=== PATIENT | female | born 1985 | race Caucasian/White ===

== ENCOUNTER 2025-01-16 23:12 | Emergency (ER) | payer BC, SELFPAY ==
--- NOTE | ~2025-01-16 | CT_ITS ---
EXAMINATION: CT abdomen pelvis w con DATE: 01/17/2025 01:06 INDICATION: Suprapubic pain TECHNIQUE: Computed tomography (CT) of the abdomen and pelvis was performed with 100 mL Omnipaque-350 intravenous contrast. Automated exposure control and iterative reconstruction technique were employe d. The dose-length product was 1430.47 mGy-cm. COMPARISON: None FINDINGS: Lung bases are clear. Heart size normal. No pericardial or pleural effusion. Focal hepatic steatosis at the ligamentum teres. Gallbladder, spleen, pancreas, bilateral adrenal glands are normal. 2 mm non obstructing stone in a lower pole calyx of the right kidney. There are a couple regions of cortical s carring the left kidney with cluster of 3 have 4 stones measuring up to 3 mm in a calyx at the majori ty regions of scarring at the lower pole of the left kidney. No ureteral stones or hydronephrosis. No bowel obstruction. Bladder is normal. 3 cm diameter lesion likely within the endocervical canal whic h is contiguous with the endometrial complex. There appears to be a dependent gradient of increasing density within the lesion suggesting possible accumulation of blood but a solid neoplastic etiology c annot be excluded. Bilateral adnexa are unremarkable. No free intraperitoneal gas or fluid. No pathol ogically enlarged abdominal or pelvic lymphadenopathy. Mild scattered degenerative skeletal changes. IMPRESSION: 1. 3 cm lesion at the endocervical canal with gradient of increasing dependent density suggesting pos sible accumulation of blood although neoplasm cannot be excluded. Correlate with pelvic ultrasound. 2. Bilateral nonobstructing nephrolithiasis. Reviewed, dictated and finalized at location A. IMPRESSION: 1. 3 cm lesion at the endocervical canal with gradient of increasing dependent density suggesting possible accumulation of blood although neoplasm cannot be e xcluded. Correlate with pelvic ultrasound. 2. Bilateral nonobstructing nephrolithiasis.
--- NOTE | ~2025-01-16 | US_ITS ---
EXAMINATION: US pelvic complete w TV DATE: 01/17/2025 03:05 INDICATION: Suprapubic pain TECHNIQUE: Multiple transabdominal and endovaginal sonographic images of the pelvis were obtained. COMPARISON: Pelvic ultrasound dated 10/24/[address] dated FINDINGS: The uterus measures 7.0 x 3.9 x 4.9 cm. The endometrial complex measures 8 mm in thickness. There is a 2.6 x 1.9 x 1.0 cm hypoechoic region centered at the cervix. There is vascular flow peripheral to the lesion but no definitive internal vascular flow which along with the appearance on prior CT favor s clot over neoplasm. The right ovary measures 2.4 x 2.4 x 1.4 cm. The left ovary measures 2.4 x 2.2 x 1.0 cm. Vascular flow on color Doppler and a few small anechoic follicles at both ovaries. There is minimal amount of likely physiologic free fluid in the pelvis. IMPRESSION: 1. 2.6 x 1.9 x 1.0 cm hypoechoic region consistent within the cervix without evident internal vascula r flow on color Doppler and with gradient of density on prior CT most suggestive of blood/clot within the endocervical canal. Consider follow-up pelvic ultrasound in a few weeks to confirm resolution. Reviewed, dictated and finalized at location A. IMPRESSION: 1. 2.6 x 1.9 x 1.0 cm hypoechoic region consistent within the cervix without ev ident internal vascular flow on color Doppler and with gradient of density on p rior CT most suggestive of blood/clot within the endocervical canal. Consider f ollow-up pelvic ultrasound in a few weeks to confirm resolution.
--- OUTSIDE RECORDS SUMMARY | 2025-01-16 23:14 | XMS_ITS | Continuity of Care Document ---
Author Organization [facility] [employer] Address [address] [place] [address] Phone Care Team Providers Care Channel Director Name Role Phone Radha Balbuena MD Unavailable Unavailable Procedures Procedure Date SUBSEQUENT HOSPITAL CARE SUBSEQUENT CARE URINALYSIS NONAUTO W/O SCOPE INITIAL CARE VISIT URINALYSIS NONAUTO W/O SCOPE ROUTINE VENIPUNCTURE HFS Tracking Only F Advance Directives Directive Yes / No Effective Date File Name No Information Encounters Encounter Description Practice Location Reason(s) For Visit Diagnoses Date Provider Providers Copied on Encounter SUBSEQUENT HOSPITAL CARE [facility] [employer] [facility], [address], [place], [id number], [place] tel:[phone] [facility] No Information Sree Garcia. [address] [place], [address], [place]. tel:[phone] Referring Provider: Radha Edwards, [address] [place], [address]. tel:[phone] [facility] [employer] [facility], [address], [place], [place], [id number], [place] tel:[phone] [facility] No Information Sree Garcia. [address] [place], [address], [place]. tel:[phone] Referring Provider: Radha Edwards, [address] [place], [address]. tel:[phone] [facility] [employer] [facility], [address], [place], [place], [id number], [place] tel:[phone] [facility] No Information Sree Garcia. [address] [place], [address], [place]. [phone] Referring Provider: Radha Edwards, [address] [place], [address]. tel:[phone] Family History Family Member Type Diagnosis Age At Onset No Information Payers Payer name Insurance type Covered green party ID Authoriza tidusty(s) [place] Medicaid MC [id number] Social History Type Description Quantity Date Captured Comments Sex Female Smoking Status No Information Chief Complaint And Reason For Visit No Information Reason For Referral Reason For Referral No Information History Of Present Illness Encounter Date Complaint History Of Prese nt Illness No Information Functional Status Date Functional Assessmen t No Information Instructions Date Instruction Additional Infor mation No Information Assessments Type Assessment Date No Information Patient Care Teams Name Effective Dates (start - stop) Status Members No Information
--- OUTSIDE RECORDS SUMMARY | 2025-01-16 23:14 | XMS_ITS | Clinical Summary ---
Author Organization [facility] Address [address] [place] [address] Care Team Providers Care Job Captain Name Role Phone Angelito Lopez MD Primary Care Provider [phone] Source Comments [facility],non-owned Affiliates and Associated Physician Practices is amultiple site organization consisting of ambulatory clinics and hospital sitesin [place], [place], [place] and [place]. This disclosure is being madepursuant to the Care Everywhere program and may not contain all information available regarding this patient. Last updated 18.[facility] [employer] Allergies No known active allergies Medications * Be aware that medications may not be up to date on this document. Alwaysverify current medications with the patient. phentermine (ADIPEX-P) 37.5 MG capsule Take 37.5 mg by mouth daily before breakfast. Active hydrocodone-oluis taminophen (NORCO) 5-325 MG tablet Take 1 Tab by mouth every 4 hours as needed for Pain. 20 Tab 0 07/26/2014 Active ibuprofen (MOTRIN) 600 MG tablet Take 1 Tab by mouth every 6 hours as needed for Pain. 20 Tab 0 07/26/2014 Active tamsulosin CR 24hr (FLOMAX) 0.4 MG capsule Take 1 Cap by mouth once daily. Take 30 minutes after a meal at the same time each day. 30 Cap 0 07/26/2014 Active ondansetron, disintegrating, (Zofran ODT) 8 MG tabletIndicatio ns:Nausea and Vomiting Take 1 (one) tablet by mouth every 8 hours as needed for Nausea/Vomiti ng Allow tablet to dissolve on the tongue Reasons: Nausea and Vomiting 10 tablet 12/24/2022 Active Social History Tobacco Use Types Packs/Day Years Used Date Smoking Tobacco: Every Day Cigarettes Last attempted to quit: 07/26/2010 Smokeless Tobacco: Never Tobacco Cessation:Ready to Q uit: No; Counseling Given: Yes Alcohol Use Standard Drinks/Week Comments No 0 (1 standard drink = 0.6 oz pur e alcohol) PHQ-2 Answer Date Recorded PHQ2 TOTAL SCORE 1 12/24/2022 Comments No Sex and Gender Information Value Date Recorded Sex Assigned at Not on file Legal Sex Female 6:29 AM PATROL SUPERVISOR Gender Identity Not on file Sexual Orientation Not on file Last Filed Vital Signs Vital Sign Reading Time Taken Comments Blood Pressure 141/96 07/26/2014 2:35 PM PATROL SUPERVISOR Pulse 76 07/26/2014 12:45 PM PATROL SUPERVISOR Temperature 36.3 C (97.4 F) 07/26/2014 10:25 AM PATROL SUPERVISOR Respiratory Rate 16 07/26/2014 2:35 PM PATROL SUPERVISOR Oxygen Saturation 100% 07/26/2014 2:35 PM PATROL SUPERVISOR Inhaled Oxygen Concentration - - Weight 108.9 kg (240 lb) 07/26/2014 10:25 AM PATROL SUPERVISOR Height 157.5 cm (5' 2.01) 07/26/2014 10:[address] Body Mass Index 43.89 07/26/2014 10:25 AM PATROL SUPERVISOR Plan of Treatment Health Maintenance Due Date Last Done Comments PAP SMEAR 1987 HIV SCREENING 2002 HEPATITIS C SCREENING 08/26/2005 DTAP/TDAP/TD VACCINES (1 - Tdap) 2006 HEPATITIS B VACCINE (1 of 3 - 19+ 3-dose series) 2006 PNEUMOCOCCAL VACCINE (1 of 2 - PCV) 2006 COVID-19 VACCINE ( - 2023-2 5 season) 2024 DEPRESSION SCREENING 08/13/2024 12/24/2022 INFLUENZA VACCINE (Season Ended) 2025 ZOSTER VACCINE (1 of 2) 2037 HIB VACCINE Aged Out No longer eligi ble based on patient's age to complete this topic HPV VACCINE Aged Out No longer eligi ble based on patient's age to complete this topic MENINGOCOCCAL (Group B) VACC INE SHARED DECISION-MAKING Aged Out No longer eligibl e based on patient's age to complete this topic MENINGOCOCCAL GROUPS A/C/Y/W VACCINE Aged Out No longer eligible b ased on patient's age to complete this topic Insurance MEDICAID [facility] MEDICAID PCP - General Internal Medicine 07/26/14
--- OUTSIDE RECORDS SUMMARY | 2025-01-16 23:14 | XMS_ITS | Continuity of Care Document ---
Author Organization [facility] Address [address] [place] [address] Phone Care Team Providers Care Director Toxicology Name Role Phone [employer] Unavailable Unavailable Procedures Procedure Date KO, Elastic Or Other Elastic Type Materi al W/condy Advance Directives Directive Yes / No Effective Date File Name No Information Encounters Encounter Description Practice Location Reason(s) For Visit Diagnoses Date Provider Providers Copied on Encounter [facility], [address] [facility], [place], [address], tel:[phone] [facility] No Information [address] [employer] [place] [address], [address], [place]. tel:[phone] Referring Provider: Deion Hanson, [address] [place] [address], [address] . tel:[phone] Family History Family Member Type Diagnosis Age At Onset No Information Payers Payer name Insurance type Covered constitution party ID Authoriza tion(s) IDPA [id number] Social History Type Description Quantity Date Captured [...]
--- OUTSIDE RECORDS SUMMARY | 2025-01-16 23:14 | XMS_ITS | Continuity of Care Document ---
Author Organization [facility] Address [address] [place] [address] Phone Care Team Providers Care Malt Liquors Sales Supervisor Name Role Phone Deion Teague MD Unavailable Unavailable Medications Medication Instructions Dosage Effective Dates (start - stop) Status Comments EC-Naprosyn 500 mg Tab Take 1 tablet by mouth twice daily - Active Procedures Procedure Date Office/outpatient visit,[facility] 2008 X-ray exam of knee, 3 views Advance Directives Directive Yes / No Effective Date File Name No Information Encounters Encounter Description Practice Location Reason(s) For Visit Diagnoses Date Provider Providers Copied on Encounter Office/outpat ient visit,[facility], [facility], [address] [place] [address], [id number], tel:[phone] [facility] No Information [address] [facility]. [address] [place] [address], [id number] , . [phone] Referring Provider: [place], [address]. tel:[phone] [facility], [address] [place] [address], [id number], tel:[phone] [facility] No Information [address]. [address] [place], [place], [id number] , . tel:[phone] Referring Provider: [place], [address]. tel:[phone] Family History Family Member Type Diagnosis Age At Onset No Information Payers Payer name Insurance type Covered republican ID Brittaney wagner(s) IDPA [id number] Social History Type Description Quantity Date Captured [...]
[2025-01-16 23:32] VITALS: BP 139/79; PULSE 79; RESP 20; TEMP 36.6; O2SAT 99
[2025-01-16 23:38] LABS: BEDSIDEPREGUCG Negative (Negative)
[2025-01-16 23:39] LABS: Basophils Absolute Auto 0.1 K/mm3 (0.0-0.1); Basophils Percent Auto 0.4 % (0.2-1.2); Eosinophils Absolute Auto 0.1 K/mm3 (0-0.3); Eosinophils Percent Auto 0.7 % (0-4.4); Hematocrit 39.8 % (37.0-47.0); Hemoglobin 12.8 g/dL (12.0-15.0); Immature Granulocyte Absolute 0.07 K/mm3 (0.00-0.031); Immature Granulocyte Percent A 0.5 % (0-0.5); Lymphocytes Absolute Auto 1.39 K/mm3 (0.9-3.2); Lymphocytes Percent Auto 9.4 % (18.3-44.2); Mean Corpuscular HGB Conc 32.2 g/dl (32-36); Mean Corpuscular Hemoglobin 26.4 pg (26-34); Mean Corpuscular Volume 82.1 fl (80-100); Monocytes Absolute Auto 0.6 K/mm3 (0.1-0.6); Neutrophils Absolute Auto 12.5 K/mm3 (1.3-6.7); Platelet Count Result 315 k/mm3 (150-375); Red Blood Count 4.85 M/mm3 (4.2-5.4); Red Cell Distribution Width 13.4 % (11.5-14.5); White Blood Count 14.7 K/mm3 (4.5-10.0)
[2025-01-16 23:48] LABS: Alanine Aminotransferase 23 U/L (6-35); Albumin Level 4.4 g/dL (3.5-5.1); Alkaline Phosphatase 115 U/L (38-126); Anion Gap 8 mmol/L (4-12); Aspartate Amino Transferase 28 U/L (14-36); Bilirubin,Total 0.4 mg/dL (0.2-1.3); Blood Urea Nitrogen 8 mg/dL (7-17); Calcium 9.5 mg/dL (8.4-10.2); Carbon Dioxide 23 mmol/L (22-30); Chloride 107 mmol/L (98-107); Estimated CRCL calculation 116 ml/min; Estimated Glomerular Filt Rate > 60; Glucose 126 mg/dL (65-110); Lipase 58 U/L (23-300); Potassium 3.9 mmol/L (3.4-5.0); Sodium 138 mmol/L (137-145)
[2025-01-16 23:51] LABS: Add Urine Microscopic? YES; Appearance Urine Clear (Clear); Bacteria Urine Rare /hpf; Bilirubin Urine Negative (Negative); Blood Urine Trace (Negative); Color Urine Yellow (Yellow); Glucose Urine UA Negative (Negative); Ketones Urine 1+ mg/dL (Negative); Leukocyte Esterase Ur Negative LEU/UL (Negative); Need Manual Microscopic Reviewed; Nitrate Urine Negative (Negative); Non Pathogenic Casts 0-2; Protein Urine Negative (Negative); RBC Urine 0-2 /hpf (0-2); Specific Grav Ur 1.025 (1.001-1.035); Squamous Epithelial Cell Urine Few /hpf (Few); Urobilinogen Urine 0.2 mg/dL (<2.0); pH Urine 5.5 (5.0-9.0)
--- OUTSIDE RECORDS SUMMARY | 2025-01-17 00:42 | XMS_ITS | Clinical Summary ---
Author Organization [facility] Address [address] [place] [address] Care Team Providers Care Adult Literacy Instructor Name Role Phone Angelito Lopez MD Primary Care Provider [phone] Source Comments [facility],non-owned Affiliates and Associated Physician Practices is amultiple site organization consisting of ambulatory clinics and hospital sitesin [place], [place], [place] and [place]. This disclosure is being madepursuant to the Care Everywhere program and may not contain all information available regarding this patient. Last updated 18.[employer] Allergies No known active allergies Medications * Be aware that medications may not be up to date on this document. Alwaysverify current medications with the patient. phentermine (ADIPEX-P) 37.5 MG capsule Take 37.5 mg by mouth daily before breakfast. Active hydrocodone-louis taminophen (NORCO) 5-325 MG tablet Take 1 [...] on file Legal Sex Female 6:29 AM DIRECTOR OF NEUROLOGY Gender Identity Not on file Sexual Orientation Not on file Last Filed Vital Signs Vital Sign Reading Time Taken Comments Blood Pressure 141/96 07/26/2014 2:35 PM DIRECTOR OF NEUROLOGY Pulse 76 07/26/2014 12:45 PM DIRECTOR OF NEUROLOGY Temperature 36.3 C (97.4 F) 07/26/2014 10:25 AM DIRECTOR OF NEUROLOGY Respiratory Rate 16 07/26/2014 2:35 PM DIRECTOR OF NEUROLOGY Oxygen Saturation 100% 07/26/2014 2:35 PM DIRECTOR OF NEUROLOGY Inhaled Oxygen Concentration - - Weight 108.9 kg (240 lb) 07/26/2014 10:25 AM DIRECTOR OF NEUROLOGY Height 157.5 cm (5' 2.01) 07/26/2014 10:[address] Body Mass Index 43.89 07/26/2014 10:25 AM DIRECTOR OF NEUROLOGY Plan of Treatment Health Maintenance Due Date [...] age to complete this topic Insurance MEDICAID [facility] MEDICAID * Guarantor: E-SCREEN,SOIL Account Type Relation to Patient Date of Phone Billing Address Company Employer [employer] [address] [facility] Teams Adult Literacy Instructor Relationship Specialty Start Date End Date Angelito Lopez MD [address] [place] [address] PCP - General Internal Medicine 07/26/14
--- OUTSIDE RECORDS SUMMARY | 2025-01-17 00:42 | XMS_ITS | Continuity of Care Document ---
Author Organization [facility] Address [address] [place] [address] Phone Care Team Providers Care Cut In Worker Name Role Phone Deion Teague MD Unavailable Unavailable Medications Medication Instructions Dosage Effective Dates (start - stop) Status Comments EC-Naprosyn 500 mg Tab Take 1 tablet by mouth twice daily - Active Procedures Procedure Date Office/outpatient visit,[facility] 2008 X-ray exam of knee, 3 views Advance Directives Directive Yes / No Effective Date File Name No Information Encounters Encounter Description Practice Location Reason(s) For Visit Diagnoses Date Provider Providers Copied on Encounter Office/outpat ient visit,[facility], [place], [address] [place] [address], [id number], tel:[phone] [facility] No Information 9 [address] Albarran. [address] [place] [address], [id number] , . [phone] Referring Provider: [place], [address]. tel:[phone] [facility], [address] [place] [address], [id number], tel:[phone] [place] [facility] No Information 9 Ho Albarran. [address] [place], [place], [id number] , . tel:[phone] Referring Provider: [place], [address]. tel:[phone] Family History Family Member Type Diagnosis Age At Onset No Information Payers Payer name Insurance type Covered alliance party ID Brittaney wagner(s) IDPA [id number] Social History Type Description Quantity Date Captured [...]
--- OUTSIDE RECORDS SUMMARY | 2025-01-17 00:42 | XMS_ITS | Continuity of Care Document ---
Author Organization [facility] Address [address] [place] [address] Phone Care Team Providers Care Optical Fabricator Name Role Phone Emair Unavailable Unavailable Procedures Procedure Date KO, Elastic Or Other Elastic Type Materi al W/condy Advance Directives Directive Yes / No Effective Date File Name No Information Encounters Encounter Description Practice Location Reason(s) For Visit Diagnoses Date Provider Providers Copied on Encounter [facility], [address] [facility], [place], [address], tel:[phone] [facility] No Information [address] [facility] [place] [address], [address], [place]. tel:[phone] Referring Provider: Deion Hanson, [address] [place] [address], [address] . tel:[phone] Family History Family Member Type Diagnosis Age At Onset No Information Payers Payer name Insurance type Covered libertarian ID Authoriza tion(s) IDPA [id number] Social History Type Description Quantity Date Captured [...]
--- OUTSIDE RECORDS SUMMARY | 2025-01-17 00:42 | XMS_ITS | Clinical Summary ---
Author Organization [facility] Address [address] [address] Phone Care Team Providers Care Solar Sales Ambassador Name Role Phone Brian Son MD Primary Care Provider [phone] Allergies No known active allergies Social History Tobacco Use Types Packs/Day Years Used Date Smoking Tobacco: Every Day Cigarettes Tobacco Cessation:Ready to Q uit: Not Asked; Counseling Given: Not Answered Alcohol Use Standard Drinks/Week Comments Never 0 (1 standard drink = 0.6 oz pur e alcohol) Comments Unknown Sex and Gender Information Value Date Recorded Sex Assigned at Not on file Legal Sex Female 10:06 AM CDT Gender Identity Not on file Sexual Orientation Not on file Last Filed Vital Signs Vital Sign Reading Time Taken Comments Blood Pressure 125/78 08/21/2023 10:15 AM DEPARTMENT TRAFFIC FREIGHT ROUTER Pulse 83 08/21/2023 10:15 AM DEPARTMENT TRAFFIC FREIGHT ROUTER Temperature 36.5 C (97.7 F) 08/21/2023 8:49 AM DEPARTMENT TRAFFIC FREIGHT ROUTER Respiratory Rate 16 08/21/2023 9:15 AM DEPARTMENT TRAFFIC FREIGHT ROUTER Oxygen Saturation 100% 08/21/2023 10:15 AM DEPARTMENT TRAFFIC FREIGHT ROUTER Inhaled Oxygen Concentration - - Weight 105 kg (231 lb 7.7 oz) 08/21/2023 8:49 AM DEPARTMENT TRAFFIC FREIGHT ROUTER Height 157.5 cm (5' 2) 08/21/2023 8:49 AM DEPARTMENT TRAFFIC FREIGHT ROUTER Body Mass Index 42.34 08/21/2023 8:49 AM DEPARTMENT TRAFFIC FREIGHT ROUTER Plan of Treatment Health Maintenance Due Date Last Done Comments Hepatitis C Virus (HCV) Screening 1987 TdaP Immunization 1987 Human Papillomavirus (HPV) Immunization (1 - 3-dose series) 2002 Hepatitis B Immunization (1 of 3 - 19+ 3-dose series) 2006 Pneumococcal Immunization Co mbined (1 of 2 - PCV) 2006 Pap Smear 2008 Cervical Cancer Screening (CCS) 2017 HPV/Cotest 2017 SARS-COV-2 Immunization (1 - 2023- season) 2024 Influenza Immunization (Seas on Ended) 2025 Respiratory Syncytial Virus (RSV) Immunization (Adult) (1 - 1-dose 75+ series) 2062 Meningococcal Immunization (ACWY) Aged Out No longer eligible based on patient's age to complete this topic Rotavirus Immunization Aged Out No lo nger eligible based on patient's age to complete this topic Insurance MEDICAID [employer] [place] [place] Care Teams Solar Sales Ambassador Relationship Specialty Start Date End Date Brian Son MD PCP - General Internal Medicine 08/21/23
--- OUTSIDE RECORDS SUMMARY | 2025-01-17 00:42 | XMS_ITS | Continuity of Care Document ---
Author Organization [facility] Address [address] [place] [address] Phone Care Team Providers Care Deli Associate Name Role Phone Radha Balbuena MD Unavailable Unavailable Procedures Procedure Date SUBSEQUENT HOSPITAL CARE SUBSEQUENT CARE URINALYSIS NONAUTO W/O SCOPE INITIAL CARE VISIT URINALYSIS NONAUTO W/O SCOPE ROUTINE VENIPUNCTURE HFS Tracking Only F Advance Directives Directive Yes / No Effective Date File Name No Information Encounters Encounter Description Practice Location Reason(s) For Visit Diagnoses Date Provider Providers Copied on Encounter SUBSEQUENT HOSPITAL CARE [facility] [employer] [facility], [address], [place], [id number], [place] tel:[phone] [facility] No Information Sree Garcia. [address] [place], [address], [place]. tel:[phone] Referring Provider: Radha Edwards, [address] [place], [address]. tel:[phone] [facility] [employer] [facility], [address], [place], [place], [id number], [place] tel:[phone] [facility] No Information Sree Garcia. [address] [place], [address], [place]. tel:[phone] Referring Provider: Radha Edwards, [address] [place], [address]. tel:[phone] [facility] [employer], [address], [place], [place], [id number], [place] tel:[phone] [facility] No Information Sree Garcia. [address] [place], [address], [place]. [phone] Referring Provider: Radha Edwards, [address] [place], [address]. tel:[phone] Family History Family Member Type Diagnosis Age At Onset No Information Payers Payer name Insurance type Covered green party ID Authoriza tidusty(s) [place] Medicaid MC [id number] Social History Type Description Quantity Date Captured [...]
--- NOTE | 2025-01-17 00:43 | ED_ITS ---
HPI - Abdominal Pain General Chief Complaint: Abdominal Pain <GIDEON Wells Last Filed: 01/17/25 02:44> Stated Complaint: suprapubic pain/abd pain <GIDEON Wells Last Filed: 01/17/25 02:44> Time Seen by Provider: 01/17/25 00:17 <GIDEON Wells Last Filed: 01/17/25 02:44> History of Present Illness HPI narrative: 39-year-old female with reported history of tubal ligation and appendectomy presents emergency department for suprapubic abdominal pain that started yesterday. Patient states since she had a tubal ligation about 13 years ago she develops severe suprapubic pain every time she gets her menstrual cycle. She states she typically has the pain, then the pain subsides shortly after when she begins having vaginal bleeding. She states yesterday she began having very sharp pains in her suprapubic region with light vaginal spotting. She is currently on schedule for her period. States the spotting has resolved with the pain is persistent which is abnormal. She is not currently having any vaginal bleeding. She describes the pain as sharp and stabbing. She denies dysuria, hematuria, urinary frequency urgency, fever, nausea or vomiting, diarrhea, vaginal discharge, concern for STDs. She has not taken anything for pain. < Gloria Villalba PA-C - Last Filed: 01/17/25 02:44> Related Data Allergies/Adverse Reactions: Allergies Allergy/AdvReac Type Severity Reaction Status Date / Time No Known Allergies Allergy Unknown Verified 10/11/11 09:22 <Gloria Villalba PA-C - Last Filed: 01/17/25 02:44> Review of Systems 2 Review of Systems: All systems reviewed & are unremarkable except as noted in HPI and below <GIDEON Wells Last Filed: 01/17/25 02:44> Exam 2 Narrative: GENERAL: Uncomfortable writhing in exam bed HEAD: Normocephalic, atraumatic. EYES: PERRLA and EOMI. ENT: Nares clear, no rhinorrhea or epistaxis. Mucous membranes moist. Dental caries throughout NECK: Supple. CHEST: Clear to auscultation. No respiratory distress. HEART: Regular rate and rhythm. No murmur heard. Normal peripheral pulses. ABDOMEN: Normoactive bowel sounds. Abdomen soft with tenderness to the suprapubic region. No rebound or rigidity. No CVA tenderness. EXTREMITIES: Normal range of motion. No edema. SKIN: Warm, dry, no rash. NEURO: No focal deficits. Alert and oriented x3 <Gloria Villalba PA-C - Last Filed: 01/17/25 02:44> Course Course Emergency Course: Patient care signed out by previous provider pending ultrasonography of the abdomen and pelvis. Patient had a CT scan earlier for abdominal pain and abdominal cramping similar to her periods. Patient had a cystic structure at the cervix with recommendations to obtain ultrasound. Ultrasound was reviewed and interpreted by radiology with normal uterus, endometrial stripe at 7.8 mm, avascular material within the endocervical canal consistent with hemorrhage, ovaries are unremarkable, no pelvic fluid or adnexal masses. Patient has overall unremarkable imaging and laboratory studies and be safely discharged home at this time given that her pain is controlled and no acute findings. < Martin Hamilton MD - Last Filed: 01/17/25 06:59> ENGINEERING LAB TECHNICIAN/PA Physician Supervision This visit was performed by both a physician and an APC. I performed all aspects of the MDM as documented. <Martin Hamilton MD - Last Filed: 01/17/25 06:59> Vital Signs Vital signs: Vital Signs Temperature 36.6 C 01/16/25 23:32 Pulse Rate 79 01/16/25 23:32 Respiratory Rate 20 01/16/25 23:32 Blood Pressure 139/79 01/16/25 23:32 Pulse Oximetry 99 01/16/25 23:32 Oxygen Delivery Room Air 01/16/25 23:32 Temperature 36.6 C 01/16/25 23:32 Pulse Rate 67 01/17/25 00:50 Respiratory Rate 19 01/17/25 00:50 Blood Pressure 131/107 H 01/17/25 00:50 Pulse Oximetry 100 01/17/25 00:50 Oxygen Delivery Room Air 01/16/25 23:32 <Gloria Villalba PA-C - Last Filed: 01/17/25 02:44> Vital Signs Temperature 36.6 C 01/16/25 23:32 Pulse Rate 79 01/16/25 23:32 Respiratory Rate 20 01/16/25 23:32 Blood Pressure 139/79 01/16/25 23:32 Pulse Oximetry 99 01/16/25 23:32 Oxygen Delivery Room Air 01/16/25 23:32 Temperature 36.6 C 01/16/25 23:32 Pulse Rate 67 01/17/25 00:50 Respiratory Rate 19 01/17/25 00:50 Blood Pressure 131/107 H 01/17/25 00:50 Pulse Oximetry 100 01/17/25 00:50 Oxygen Delivery Room Air 01/16/25 23:32 <Martin Hamilton MD - Last Filed: 01/17/25 06:59> MDM - Abdominal Pain MDM Narrative Medical decision making narrative: 39-year-old female with history of appendectomy and tubal ligation presents to the emergency department for suprapubic abdominal pain that started yesterday with associated vaginal spotting. This is associated with the timing of her menstrual cycle. Vital signs are stable. She is afebrile and nontoxic appearing, however does appear very uncomfortable on exam is writhing in the exam bed. Exam is notable for tenderness to the suprapubic region with no rebound or rigidity. Lab work is remarkable for leukocytosis of 14.7. Chemistries are unremarkable. UA with 11-20 white blood cells, no leuk esterase or nitrites, 1+ ketones, no hematuria. Urine culture is pending. Lipase is within normal limits. is negative. CT abdomen pelvis shows a cystic area in the cervix measuring 3.3 x 2.8 cm with recommendations for pelvic ultrasound. Pt given fluids, Zofran and Toradol with significant improvement. Pending pelvic ultrasound to rule out ovarian torsion and for further evaluation of CT at time of sign-out to Dr. Hamilton. <Gloria Villalba PA-C - Last Filed: 01/17/25 02:44> Lab Data Result diagrams: 01/16/25 23:30 01/16/25 23:30 <Gloria Villalba PA-C - Last Filed: 01/17/25 02:44> Labs: Lab Results 01/16/25 01/16/25 Range/Units 23:30 23:32 WBC 14.7 H (4.5-10.0) K/mm3 RBC 4.85 (4.2-5.4) M/mm3 Hgb 12.8 (12.0-15.0) g/dL Hct 39.8 (37.0-47.0) % MCV 82.1 (80-100) fl MCH 26.4 (26-34) pg MCHC 32.2 (32-36) g/dl RDW 13.4 (11.5-14.5) % Plt Count 315 (150-375) k/mm3 MPV 10.0 (7.4-10.4) fl Immature Gran % (Auto) 0.5 (0-0.5) % Neut % (Auto) 85.0 H (45.5-73.1) % Lymph % (Auto) 9.4 L (18.3-44.2) % [place] % (Auto) 4.0 (2.6-8.5) % Eos % (Auto) 0.7 (0-4.4) % Baso % (Auto) 0.4 (0.2-1.2) % Lymph # (Auto) 1.39 (0.9-3.2) K/mm3 [place] # (Auto) 0.6 (0.1-0.6) K/mm3 Eos # (Auto) 0.1 (0-0.3) K/mm3 Baso # (Auto) 0.1 (0.0-0.1) K/mm3 Abs Immat Gran (auto) 0.07 H (0.00-0.031) K/mm3 Absolute Neuts (auto) 12.5 H (1.3-6.7) K/mm3 Absolute Nucleated RBC 0.000 (0.0-0.012) K/mm3 Nucleated RBC % 0.0 (0.0-0.2) % Sodium 138 (137-145) mmol/L Potassium 3.9 (3.4-5.0) mmol/L Chloride 107 (98-107) mmol/L Carbon Dioxide 23 (22-30) mmol/L Anion Gap 8 (4-12) mmol/L BUN 8 (7-17) mg/dL Creatinine 0.66 L (0.7-1.0) mg/dL Estim Creat Clear Calc 116 ml/min Estimated GFR > 60 (59 - ) Glucose 126 H (65-110) mg/dL Calcium 9.5 (8.4-10.2) mg/dL Total Bilirubin 0.4 (0.2-1.3) mg/dL AST 28 (14-36) U/L ALT 23 (6-35) U/L Alkaline Phosphatase 115 (38-126) U/L Total Protein 8.0 (6.3-8.2) g/dL Albumin 4.4 (3.5-5.1) g/dL Lipase 58 (23-300) U/L Urine Color Yellow (Yellow) Urine Appearance Clear (Clear) Urine pH 5.5 (5.0-9.0) Ur Specific [place] 1.025 (1.001-1.035) Urine Protein Negative (Negative) mg/dL Urine Glucose (UA) Negative (Negative) mg/dL Urine Ketones 1+ H (Negative) mg/dL Ur Blood (Man) Trace (Negative) Urine Nitrate Negative (Negative) Urine Bilirubin Negative (Negative) Urine Urobilinogen 0.2 (<2.0) mg/dL Add Ur Microanalysis Reviewed Leukocyte Esterase Rfl Negative (Negative) CHRISTEL/UL Urine RBC 0-2 (0-2) /hpf Urine WBC 11-20 H (0-3) /hpf Ur Squamous Epith Cells Few (Few) /hpf Urine Bacteria Rare /hpf Urine Casts 0-2 POC Urine HCG, Qual Negative (Negative) <Gloria Villalba PA-C - Last Filed: 01/17/25 02:44> Lab Results 01/16/25 01/16/25 Range/Units 23:30 23:32 WBC 14.7 H (4.5-10.0) K/mm3 RBC 4.85 (4.2-5.4) M/mm3 Hgb 12.8 (12.0-15.0) g/dL Hct 39.8 (37.0-47.0) % MCV 82.1 (80-100) fl MCH 26.4 (26-34) pg MCHC 32.2 (32-36) g/dl RDW 13.4 (11.5-14.5) % Plt Count 315 (150-375) k/mm3 MPV 10.0 (7.4-10.4) fl Immature Gran % (Auto) 0.5 (0-0.5) % Neut % (Auto) 85.0 H (45.5-73.1) % Lymph % (Auto) 9.4 L (18.3-44.2) % [place] % (Auto) 4.0 (2.6-8.5) % Eos % (Auto) 0.7 (0-4.4) % Baso % (Auto) 0.4 (0.2-1.2) % Lymph # (Auto) 1.39 (0.9-3.2) K/mm3 [place] # (Auto) 0.6 (0.1-0.6) K/mm3 Eos # (Auto) 0.1 (0-0.3) K/mm3 Baso # (Auto) 0.1 (0.0-0.1) K/mm3 Abs Immat Gran (auto) 0.07 H (0.00-0.031) K/mm3 Absolute Neuts (auto) 12.5 H (1.3-6.7) K/mm3 Absolute Nucleated RBC 0.000 (0.0-0.012) K/mm3 Nucleated RBC % 0.0 (0.0-0.2) % Sodium 138 (137-145) mmol/L Potassium 3.9 (3.4-5.0) mmol/L Chloride 107 (98-107) mmol/L Carbon Dioxide 23 (22-30) mmol/L Anion Gap 8 (4-12) mmol/L BUN 8 (7-17) mg/dL Creatinine 0.66 L (0.7-1.0) mg/dL Estim Creat Clear Calc 116 ml/min Estimated GFR > 60 (59 - ) Glucose 126 H (65-110) mg/dL Calcium 9.5 (8.4-10.2) mg/dL Total Bilirubin 0.4 (0.2-1.3) mg/dL AST 28 (14-36) U/L ALT 23 (6-35) U/L Alkaline Phosphatase 115 (38-126) U/L Total Protein 8.0 (6.3-8.2) g/dL Albumin 4.4 (3.5-5.1) g/dL Lipase 58 (23-300) U/L Urine Color Yellow (Yellow) Urine Appearance Clear (Clear) Urine pH 5.5 (5.0-9.0) Ur Specific [place] 1.025 (1.001-1.035) Urine Protein Negative (Negative) mg/dL Urine Glucose (UA) Negative (Negative) mg/dL Urine Ketones 1+ H (Negative) mg/dL Ur Blood (Man) Trace (Negative) Urine Nitrate Negative (Negative) Urine Bilirubin Negative (Negative) Urine Urobilinogen 0.2 (<2.0) mg/dL Add Ur Microanalysis Reviewed Leukocyte Esterase Rfl Negative (Negative) CRHISTEL/UL Urine RBC 0-2 (0-2) /hpf Urine WBC 11-20 H (0-3) /hpf Ur Squamous Epith Cells Few (Few) /hpf Urine Bacteria Rare /hpf Urine Casts 0-2 POC Urine HCG, Qual Negative (Negative) <Martin Hamilton MD - Last Filed: 01/17/25 06:59> Discharge Plan Discharge Clinical Impression: Pelvic pain <Gloria Villalba PA-C - Last Filed: 01/17/25 02:44> Patient Disposition: Home <Gloria Villalba PA-C - Last Filed: 01/17/25 02:44> Condition: Stable <Gloria Villalba PA-C - Last Filed: 01/17/25 02:44> Instructions: Antibiotic Form, Pelvic Pain (ED) <Gloria Villalba PA-C - Last Filed: 01/17/25 02:44> Additional Instructions: Your CT scan and ultrasound reports reveal no acute urgent or emergent findings. No free fluid or bleeding in the abdomen or pelvis, no masses, normal uterus, normal ovaries. Laboratory studies are also reassuring. Follow-up with regular doctor or OBGYN regarding her symptoms and pain. Return with any worsening pain, developing fevers not responsive to Tylenol, nausea and vomiting and not able to tolerate oral intake or any other concerns. <Gloria Villalba PA-C - Last Filed: 01/17/25 02:44> Patient Language: Danish <GIDEON Wells Last Filed: 01/17/25 02:44> Follow-up/Referrals: PHYSICIAN NOT ON STAFF,NONSTAFF [Primary Care Provider] - <GIDEON Wells Last Filed: 01/17/25 02:44> Time of Disposition: 04:18 <Gloria Villalba PA-C - Last Filed: 01/17/25 02:44> 04:18 <Martin Hamilton MD - Last Filed: 01/17/25 06:59>
[2025-01-17] MEDS: SODIUM CHLORIDE 0.9% IV 1,000 ML 999 ML IV CONT (00:46)
[2025-01-17] MEDS: ONDANSETRON INJ 4 MG/2 ML VIAL IV PUSH (00:47)
[2025-01-17] MEDS: KETOROLAC 15 MG/ML VIAL (*BKC) IV PUSH ×2 (00:49→03:21)
[2025-01-17 00:50] VITALS: BP 131/107; PULSE 67; RESP 19; O2SAT 100
== END 2025-01-17 04:43 | disposition home or self-care (01) ==
PROVIDERS: Student in an Organized Health Care Education/Training Program; Emergency Provider Physician Assistant
DX: R10.2 Pelvic and perineal pain (principal)
CPT/HCPCS: 36415; 74177; 76830; 76856; 80053; 81001; 81025; 83690; 85025; 87086; 96361; 96374; 96375; 99284; J1885; J2405; J7030; Q9967